=== PATIENT | male | born 1955 | race Caucasian/White ===

== ENCOUNTER 2016-10-22 06:56 | Day surgery (SDC) | payer OTHER ==
[~2016-10-22] VITALS: Ht 188 cm; Wt 115.7 kg
[2016-10-22 07:19] VITALS: BP 150/85
[2016-10-22 10:22] VITALS: BP 132/76
== END 2016-10-22 10:15 | disposition home or self-care (01) ==
LOC: DS 06:56 → GI 08:30 → OR 08:30 → DS 10:15
PROVIDERS: Internal Medicine Gastroenterology
PROC: 0DBM8ZZ Excision of Descending Colon, Via Natural or Artificial Opening Endoscopic (ICD-10-PCS; principal; 2016-10-22 08:30)
PROC: 0DBN8ZZ Excision of Sigmoid Colon, Via Natural or Artificial Opening Endoscopic (ICD-10-PCS; 2016-10-22 08:30)
DX: Z12.11 Encounter for screening for malignant neoplasm of colon (principal); D12.5 Benign neoplasm of sigmoid colon; D12.4 Benign neoplasm of descending colon; I10 Essential (primary) hypertension; Z68.23 Body mass index [BMI] 23.0-23.9, adult
CPT/HCPCS: 45378; J1200; J1610; J2250; J2310; J3010; J3490